=== PATIENT | female | born 1980 | race Caucasian/White ===

== ENCOUNTER 2018-10-02 02:26 | Emergency (ER) | payer OTHER ==
[~2018-10-02] VITALS: Ht 172.7 cm; Wt 72.7 kg
[2018-10-02 02:31] VITALS: Ht 172.7 cm; Wt 72.7 kg
[2018-10-02] MEDS ORDERED: SYNTHROID137 MCG PO (02:32)
[2018-10-02 03:09] LABS: BASOPHILS 0.3 % (0-2); HEMATOCRIT 38.4 % (36.0-48.0); HEMOGLOBIN 13.3 g/dL (12-16); IMMATURE GRANULOCYTES 0.3 % (0-5); LYMPHOCYTES 24.8 % (15-50); MCH 30.2 pg (26.0-34.0); MCHC 34.6 g/dL (31.0-37.0); MCV 87.1 fL (80.0-100.0); MEAN PLATELET VOLUME 9.6 fL (7.4-10.4); MONOCYTES 11.8 % (2-11); NEUTROPHILS 61.8 % (40-80); PLATELET COUNT 184 10x3/uL (130-400); RBC 4.41 10x6/uL (4.00-5.40); RDW 12.4 % (11.5-14.5); WBC 7.8 10x3/uL (4.8-10.8)
[2018-10-02 03:21] LABS: ALBUMIN 3.9 g/dL (3.4-5.0); ALKALINE PHOSPHATASE 57 U/L (46-116); ALT (SGPT) 32 U/L (10-68); BILIRUBIN - TOTAL 0.63 mg/dL (0.2-1.3); CALC OSMOLALITY 273 mosm/kg (275-300); CARBON DIOXIDE 26.9 mmol/L (21.0-32.0); CHLORIDE - SERUM 104 mmol/L (98-107); CREATININE - SERUM 0.7 mg/dL (0.6-1.3); GLUCOSE 94 mg/dL (74-106); POTASSIUM - SERUM 4.2 mmol/L (3.5-5.1); PROTEIN - SERUM 7.7 g/dL (6.4-8.2); SODIUM 137 mmol/L (136-145); UREA NITROGEN 12 mg/dL (7-18); eGFR NON AFRICAN AMERICAN > 90 mL/min (90-120)
[2018-10-02 03:23] LABS: HCG SERUM NEGATIVE (NEGATIVE)
[2018-10-02] MEDS ORDERED: NAPROSYN500 MG PO (04:46)
[2018-10-02 04:59] VITALS: BP 119/64
== END 2018-10-02 04:59 | disposition home or self-care (01) ==
LOC: D.ER 02:26
PROVIDERS: Family Medicine
DX: R51 Headache (principal)